=== PATIENT | female | born 1985 | race African-American/Black ===

== ENCOUNTER 2017-07-20 05:03 | Emergency (ER) | payer OTHER ==
--- NOTE | 2017-07-20 05:23 | PDOC ---
History of Present Illness - General Stated Complaint: COUGH, HEADACHE Time Seen by Provider: 07/20/17 05:17 History Source: Patient Exam Limitations: No Limitations - History of Present Illness Initial Comments: 07/20/17 05:22 32-year-old female with a history of asthma presents to the emergency department complaining of subjective fever, chills, body aches, sore throat, intermittent cough 4 days without headache, dizziness, lightheadedness, facial pain, rhinorrhea, nasal congestion, earaches, chest pain, shortness of breath, abdominal pains, flank pains, urinary symptoms. Past History - Past Medical History Allergies/Adverse Reactions: Allergies Allergy/AdvReac Type Severity Reaction Status Date / Time No Known Allergies Allergy Verified 11/05/15 12:03 Home Medications: Ambulatory Orders NK [No Known Home Medication] 11/05/15 Asthma: No Cancer: No Cardiac Disorders: No Diabetes: No HTN: No Seizures: No Thyroid Disease: No (denies) - Surgical History Abdominal Surgery: Yes (LAP BAND, gastric bypass) - Reproductive History (#): 4 Para: 1 Spontaneous : 2 - Immunization History Immunization Up to Date: Yes - Suicide/Smoking/Psychosocial Hx Smoking Status: No Smoking History: Never smoked Have you smoked in the past 12 months: No Number of Cigarettes Smoked Daily: 0 Hx Alcohol Use: No Drug/Substance Use Hx: No Substance Use Type: None Hx Substance Use Treatment: No Review of Systems - Review of Systems Able to Perform ROS?: Yes Comments:: 07/20/17 06:04 CONSTITUTIONAL: +subjective fever/chills Absent: diaphoresis, generalized weakness, malaise, loss of appetite HEENT: Absent: rhinorrhea, nasal congestion, throat pain, throat swelling, difficulty swallowing, mouth swelling, ear pain, eye pain, visual Changes CARDIOVASCULAR: Absent: chest pain, loss of consciousness, palpitations, irregular heart rate, peripheral edema RESPIRATORY: Absent: cough, shortness of breath, dyspnea with exertion, orthopnea, wheezing, stridor, hemoptysis GASTROINTESTINAL: Absent: abdominal pain, abdominal distension, nausea, vomiting, diarrhea, constipation, melena, hematochezia GENITOURINARY: Absent: dysuria, frequency, urgency, hesitancy, hematuria, flank pain, genital pain MUSCULOSKELETAL: Absent: myalgia, arthralgia, joint swelling SKIN: Absent: rash, itching, pallor HEMATOLOGIC/IMMUNOLOGIC: Absent: easy bleeding, easy bruising, lymphadenopathy, frequent infections ENDOCRINE: Absent: unexplained weight gain, unexplained weight loss, heat intolerance, cold intolerance NEUROLOGIC: Absent: headache, focal weakness or paresthesias, dizziness, unsteady gait, seizure, mental status changes, bladder or bowel incontinence PSYCHIATRIC: Absent: anxiety, depression, suicidal or homicidal ideation, hallucinations. Is the patient limited Lithuanian proficient: No *Physical Exam - Physical Exam Comments: 07/20/17 06:05 GENERAL: Well developed, well nourished. Awake and alert. No acute distress. HEENT: Normocephalic, atraumatic. PERRLA, EOMI. No conjunctival pallor. Sclera are non- icteric. Moist mucous membranes. Oropharynx is clear. NECK: Supple. Full ROM. No JVD. Carotid pulses 2+ and symmetric, without bruits. No thyromegaly. No lymphadenopathy. CARDIOVASCULAR: Regular rate and rhythm. No murmurs, rubs, or gallops. Distal pulses are 2+ and symmetric. PULMONARY: No evidence of respiratory distress. Lungs clear to auscultation bilaterally. No wheezing, rales or rhonchi. ABDOMINAL: Soft. Non-tender. Non-distended. No rebound or guarding. No organomegaly. Normoactive bowel sounds. MUSCULOSKELETAL Normal range of motion at all joints. No bony deformities or tenderness. No CVA tenderness. EXTREMITIES: No cyanosis. No clubbing. No edema. No calf tenderness. SKIN: Warm and dry. Normal capillary refill. No rashes. No jaundice. Medical Decision Making - Medical Decision Making 07/20/17 06:34 32-year-old female presents to the emergency department complaining of fever, general malaise, sore throat. Influenza swab came back positive for influenza A. Due to having these symptoms for 4 days, no treatment necessary except for supportive care. Increase fluids, Tylenol Motrin as needed for pain/fever, follow with PMD area patient agrees with plan. *DC/Admit/Observation/Transfer Diagnosis at time of Disposition: Influenza A (H1N1) - Discharge Dispostion Disposition: HOME Condition at time of disposition: Stable Admit: No - Referrals Referrals: Jayy Randhawa MD [Primary Care Provider] - - Patient Instructions Printed Discharge Instructions: DI for H1N1 Influenza -- Adult Additional Instructions: Increase fluids Tylenol alternating with Motrin every 6 hours as needed for pain or fever Follow-up with your physician within 48 hours Due to having these symptoms for the past 4 days, he would not be given Tamiflu. Supportive care/[id number] symptom relief medications suggested Return back to the emergency department for severe/persistent or worsening symptoms - Post Discharge Activity
[2017-07-20 05:42] VITALS: BP 137/89; PULSE 82; TEMP 99.1; BMI 43.8
== END 2017-07-20 06:42 | disposition home or self-care (01) ==
LOC: JER 05:03
DX: J10.1 Influenza due to other identified influenza virus with other respiratory manifestations (principal)
CPT/HCPCS: 87070; 87804; 99282-25

== ENCOUNTER 2017-09-23 06:56 | Emergency (ER) | payer OTHER ==
[2017-09-23 07:43] VITALS: BP 144/95; PULSE 83; TEMP 98.2; BMI 43.8
--- NOTE | 2017-09-23 07:52 | PDOC ---
History of Present Illness - General Chief Complaint: Pain, Acute Stated Complaint: ABD PAIN Time Seen by Provider: 09/23/17 07:41 History Source: Patient Exam Limitations: No Limitations - History of Present Illness Travel History: No Initial Comments: 09/23/17 08:04 Patient came to emergency department for evaluation of abdominal cramping. [facility] last menstrual period July 14 of this year, resulting in a that was documented at [facility]. Patient was ambivalent about retaining and was seen at [facility] yesterday to discuss . agreed to start the program and was given the first tablet of misoprostol- 200mg at [facility] yesterday afternoon at 2:30. Upon leaving the clinic patient decided she did not any longer wished to abort this . States woke up at 3:30 this morning with abdominal cramping. Denies fever, nausea vomiting, denies any vaginal bleeding or discharge. But states cramping is progressively worsening. Timing/Duration: reports: getting worse, intermittent Quality: reports: moderate, severe, aching, cramping Abdominal Pain Onset Location: reports: epigastric, generalized abdomen Pain Radiation: reports: no radiation Past History - Travel Traveled outside of the country in the last 30 days: No Close contact w/someone who was outside of country & ill: No - Past Medical History Allergies/Adverse Reactions: Allergies Allergy/AdvReac Type Severity Reaction Status Date / Time No Known Allergies Allergy Verified 09/23/17 07:36 Home Medications: Ambulatory Orders NK [No Known Home Medication] 11/05/15 Asthma: No Cancer: No Cardiac Disorders: No Diabetes: No HTN: No Seizures: No Thyroid Disease: No (denies) - Surgical History Abdominal Surgery: Yes (LAP BAND, gastric bypass) - Reproductive History (#): 4 Para: 1 Spontaneous : 2 - Immunization History Immunization Up to Date: Yes - Suicide/Smoking/Psychosocial Hx Smoking Status: No Smoking History: Never smoked Have you smoked in the past 12 months: No Number of Cigarettes Smoked Daily: 0 Hx Alcohol Use: No Drug/Substance Use Hx: No Substance Use Type: None Hx Substance Use Treatment: No Review of Systems - Review of Systems Able to Perform ROS?: Yes Is the patient limited Lao proficient: Yes Constitutional: Yes: Symptoms Reported, See HPI, Loss of Appetite, Malaise. No : Fever HEENTM: Yes: See HPI. No: Symptoms Reported Respiratory: Yes: See HPI. No: Symptoms reported, Cough ABD/GI: Yes: Symptoms Reported, See HPI, Abdominal cramping. No: Nausea, Vomiting : Yes: See HPI. No: Symptoms Reported, Burning, Dysuria, Discharge Musculoskeletal: No: Symptoms Reported All Other Systems: Reviewed and Negative *Physical Exam - Physical Exam General Appearance: Yes: Nourished, Appropriately Dressed HEENT: positive: SHALINI, Normal ENT Inspection Neck: positive: Supple. negative: Tender Respiratory/Chest: positive: Lungs Clear, Normal Breath Sounds Gastrointestinal/Abdominal: positive: Tender (generalized diffused), Soft, Tenderness (mild diffuse, no rebound or guarding, and primarily suprapubic). 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 Galvez who agrees there is no treatment and only watch and wait for positive results of Mifepristone versus retained . Patient will follow-up with [facility] and up week and understands consequents and what to watch for regards to abortive *DC/Admit/Observation/Transfer Diagnosis at time of Disposition: Abdominal pain during Qualifiers: Trimester: first trimester Qualified Code(s): O26.891 - Other specified related conditions, first trimester; R10.9 - Unspecified abdominal pain; R10.9 - Unspecified abdominal pain - Discharge Dispostion Disposition: HOME Condition at time of disposition: Stable Admit: No - Referrals Referrals: Jayy Randhawa MD [Primary Care Provider] - Checo Willis MD [Staff Physician] - - Patient Instructions Printed Discharge Instructions: DI for Threatened Additional Instructions: Rest, drink lots of fluids: Teas, water, soups Continue [id number] medications for symptomatic relief Tylenol for fever and pain Followup with private physician in one to 2 days as needed Return to emergency department for worsened symptoms, fevers, dehydration If the medication works, he will notice any increasing amount of bleeding and abdominal cramping with the completion of the . Follow-up with [facility] by the end of the week for further evaluation - Post Discharge Activity
[2017-09-23] MEDS ORDERED: ACETAMINOPHEN 500 MG TABLET (FP) PO ONE (08:02)
[2017-09-23] MEDS ORDERED: ACETAMINOPHEN 325 MG TABLET (FP) ONE (08:18)
[2017-09-23 09:18] LABS: URINE APPEARANCE CLOUDY; URINE BILIRUBIN NEGATIVE (NEGATIVE); URINE BLOOD NEGATIVE (NEGATIVE); URINE COLOR LTYELLOW; URINE GLUCOSE (UA) NEGATIVE (NEGATIVE); URINE KETONE TRACE (NEGATIVE); URINE LEUK ESTERASE TRACE (NEGATIVE); URINE NITRITE NEGATIVE (NEGATIVE); URINE PROTEIN NEGATIVE (NEGATIVE); URINE UROBILINOGEN NEGATIVE mg/dL (0.2-1.0)
[2017-09-23 09:21] LABS: EPI CELLS MANY /HPF (FEW); URINE MUCUS RARE
== END 2017-09-23 10:02 | disposition home or self-care (01) ==
LOC: JER 06:56
DX: O26.891 Other specified pregnancy related conditions, first trimester (principal); R10.84 Generalized abdominal pain; Z3A.01 Less than 8 weeks gestation of pregnancy
CPT/HCPCS: 81003; 81015; 99282-25

== ENCOUNTER 2017-09-24 00:26 | Emergency (ER) | payer OTHER ==
[2017-09-24 00:43] VITALS: BP 128/81; PULSE 135; TEMP 98.3; BMI 43.8
--- NOTE | 2017-09-24 00:55 | PDOC ---
History of Present Illness - General History Source: Patient Exam Limitations: No Limitations - History of Present Illness Initial Comments: 09/24/17 01:10 The patient is a 32 year old female who is reportedly 2 months ( LMP: 07/14/2017) with a significant PMH of who presents to the emergency department with vaginal bleeding beginning approximately 8 hours ago. The patient was evaluated here in the ED yesterday evening for abdominal cramping. The patient reports that she agreed to start a Misoprostol course at [facility] 2 days ago to terminate her , but upon taking the first 200mg Misoprostol pill notes she no longer wanted to abort. She presents this morning after she reports she continues to bleed heavily. The patient denies chest pain, shortness of breath, headache and dizziness. Denies fever, chills, nausea, vomit, diarrhea and constipation. Denies dysuria, frequency, urgency and hematuria. Allergies: NKA Past surgical history: Lap band, gastric bypass. Social history: No reported cigarette, alcohol, or drug use. PCP: None reported. <Tyrell Harrison - Last Filed: 09/24/17 01:10> - General History Source: Patient <MarvinSin covarrubias - Last Filed: 09/24/17 03:39> - General Chief Complaint: Vaginal Bleeding Stated Complaint: VAGINAL BLEEDING,PAIN Time Seen by Provider: 09/24/17 00:50 Past History <Tyrell Harrison - Last Filed: 09/24/17 01:10> - Past Medical History Asthma: No Cancer: No Cardiac Disorders: No COPD: No Diabetes: No HTN: No Seizures: No Thyroid Disease: No (denies) - Surgical History Abdominal Surgery: Yes (LAP BAND, gastric bypass) - Reproductive History (#): 5 Para: 3 Therapeutic (s) & number: Yes Spontaneous : 2 - Immunization History Immunization Up to Date: Yes - Suicide/Smoking/Psychosocial Hx Smoking Status: No Smoking History: Never smoked Have you smoked in the past 12 months: No Number of Cigarettes Smoked Daily: 0 Information on smoking cessation initiated: No 'Breaking Loose' booklet given: 09/23/17 Hx Alcohol Use: No Drug/Substance Use Hx: No Substance Use Type: None Hx Substance Use Treatment: No <Sin Cooley - Last Filed: 09/24/17 03:39> - Past Medical History Allergies/Adverse Reactions: Allergies Allergy/AdvReac Type Severity Reaction Status Date / Time No Known Allergies Allergy Verified 09/24/17 00:40 Home Medications: Ambulatory Orders Oxycodone HCl/Acetaminophen [Percocet 5-325 mg Tablet] 1 - 2 tab PO Q6H #20 tablet MDD 4 09/24/17 Review of Systems - Review of Systems Able to Perform ROS?: Yes Comments:: 09/24/17 01:10 CONSTITUTIONAL: Absent: fever, chills, diaphoresis, generalized weakness, malaise, loss of appetite HEENT: Absent: rhinorrhea, nasal congestion, throat pain, throat swelling, difficulty swallowing, mouth swelling, ear pain, eye pain, visual Changes CARDIOVASCULAR: Absent: chest pain, syncope, palpitations, irregular heart rate, lightheadedness , peripheral edema RESPIRATORY: Absent: cough, shortness of breath, dyspnea with exertion, orthopnea, wheezing, stridor, hemoptysis GASTROINTESTINAL: Absent: abdominal pain, abdominal distension, nausea, vomiting, diarrhea, constipation, melena, hematochezia GENITOURINARY: (+) Vaginal bleeding. Absent: dysuria, frequency, urgency, hesitancy, hematuria, flank pain, genital pain MUSCULOSKELETAL: Absent: myalgia, arthralgia, joint swelling SKIN: Absent: rash, itching, pallor HEMATOLOGIC/IMMUNOLOGIC: Absent: easy bleeding, easy bruising, lymphadenopathy, frequent infections ENDOCRINE: Absent: unexplained weight gain, unexplained weight loss, heat intolerance, cold intolerance NEUROLOGIC: Absent: headache, focal weakness or paresthesias, dizziness, unsteady gait, seizure, mental status changes, bladder or bowel incontinence PSYCHIATRIC: Absent: anxiety, depression, suicidal or homicidal ideation, hallucinations. <Tyrell Harrison - Last Filed: 09/24/17 01:10> *Physical Exam - Vital Signs Last Vital Signs Temp Pulse Resp BP Pulse Ox 98.3 F 135 H 14 128/81 100 09/24/17 00:40 09/24/17 00:40 09/24/17 00:40 09/24/17 00:40 09/24/17 00:40 - Physical Exam Comments: 09/24/17 01:10 GENERAL: Well developed, well nourished. Awake and alert. No acute distress. HEENT: Normocephalic, atraumatic. PERRLA, EOMI. No conjunctival pallor. Sclera are non- icteric. Moist mucous membranes. Oropharynx is clear. NECK: Supple. Full ROM. No JVD. Carotid pulses 2+ and symmetric, without bruits. No thyromegaly. No lymphadenopathy. CARDIOVASCULAR: Regular rate and rhythm. No murmurs, rubs, or gallops. Distal pulses are 2+ and symmetric. PULMONARY: No evidence of respiratory distress. Lungs clear to auscultation bilaterally. No wheezing, rales or rhonchi. ABDOMINAL: Soft. Non-tender. Non-distended. No rebound or guarding. No organomegaly. Normoactive bowel sounds. PELVIC: Deferred to pelvic US. MUSCULOSKELETAL Normal range of motion at all joints. No bony deformities or tenderness. No CVA tenderness. EXTREMITIES: No cyanosis. No clubbing. No edema. No calf tenderness. SKIN: Warm and dry. Normal capillary refill. No rashes. No jaundice. NEUROLOGICAL: Alert, awake, appropriate. Cranial nerves 2-12 intact. No deficits to light touch and temperature in face, upper extremities and lower extremities. No motor deficits in the in face, upper extremities and lower extremities. Normoreflexic in the upper and lower extremities. Normal speech. Toes are downgoing bilaterally. Gait is normal without ataxia. PSYCHIATRIC: Cooperative. Good eye contact. Appropriate mood and affect. <Tyrell Harrison - Last Filed: 09/24/17 01:10> - Vital Signs Last Vital Signs Temp Pulse Resp BP Pulse Ox 98.3 F 135 H 14 128/81 100 09/24/17 00:40 09/24/17 00:40 09/24/17 00:40 09/24/17 00:40 09/24/17 00:40 <Sin Cooley - Last Filed: 09/24/17 03:39> ED Treatment Course - LABORATORY CBC & Chemistry Diagram: 09/24/17 01:09 09/24/17 01:09 <Sin Cooley - Last Filed: 09/24/17 03:39> Medical Decision Making - Medical Decision Making 09/24/17 02:51 Dr. Cooley: The scribe's documentation has been prepared under my direction and personally reviewed by me in its entirery. I confirm that the note above accurately reflects all work, treatment, procedures, and medical decision making performed by me. 09/24/17 03:37 Pt heart still high secondary to pain. Pt denies any cp or sob. Pt will be given Toradol 60mg IM and discharged. Pt advised to follow up with OB// [facility] in two days for repeat US. <Sin Cooley - Last Filed: 09/24/17 03:39> *DC/Admit/Observation/Transfer - Attestations Scribe Attestion: 09/24/17 01:10 Documentation prepared by Tyrell Harrison, acting as rn medical inpatient services for Sin Cooley DO. <Tyrell Harrison - Last Filed: 09/24/17 01:10> - Discharge Dispostion Admit: No <Sin Cooley - Last Filed: 09/24/17 03:39> Diagnosis at time of Disposition: Inevitable - Discharge Dispostion Disposition: HOME Condition at time of disposition: Stable - Prescriptions Prescriptions: Oxycodone HCl/Acetaminophen [Percocet 5-325 mg Tablet] 1 - 2 tab PO Q6H #20 tablet MDD 4 - Referrals Referrals: Jayy Randhawa MD [Primary Care Provider] - - Patient Instructions Printed Discharge Instructions: DI for Miscarriage Additional Instructions: Please follow up with fitter/welder in two to three days to follow up to have ultrasound to be repeated. Return if any probems
[2017-09-24 01:16] LABS: BASO % 1.5 % (0-2.0); EOS % 0.5 % (0-4.5); HEMATOCRIT 34.6 % (32.4-45.2); HEMOGLOBIN 11.7 GM/dL (10.7-15.3); LYMPH % 32.4 % (8-40); MCH 25.9 pg (25.7-33.7); MCHC 33.8 g/dl (32.0-36.0); MEAN CELL VOLUME 76.6 fl (80-96); MEAN PLT VOLUME 6.8 fl (7.5-11.1); NEUT % 57.6 % (42.8-82.8); PLATELET COUNT 417 K/MM3 (134-434); RBC 4.51 M/mm3 (3.60-5.2); RDW 17.7 % (11.6-15.6); WHITE BLOOD COUNT 6.4 K/mm3 (4.0-10.0)
[2017-09-24 01:32] LABS: INR 0.98 (0.82-1.09); PROTHROMBIN TIME (PATIENT) 11.1 SEC (9.98-11.88)
[2017-09-24 01:42] LABS: ALBUMIN 3.6 g/dl (3.4-5.0); ANION GAP 12 (8-16); BILIRUBIN,TOTAL 0.3 mg/dL (0.2-1.0); BLOOD UREA NITROGEN 5 mg/dL (7-18); CALCIUM 9.2 mg/dL (8.5-10.1); CHLORIDE 102 mmol/L (98-107); CO2 21 mmol/L (21-32); CREATININE 0.9 mg/dL (0.55-1.02); GLUCOSE,RANDOM 92 mg/dL (74-106); POTASSIUM 3.8 mmol/L (3.5-5.1); SGOT/AST 16 U/L (15-37); SGPT/ALT 13 U/L (12-78); SODIUM 135 mmol/L (136-145); TOT PROT 7.8 g/dl (6.4-8.2)
[2017-09-24 01:57] LABS: ALK PHOS 89 U/L (45-117)
[2017-09-24 02:36] LABS: URINE APPEARANCE CLOUDY; URINE BILIRUBIN NEGATIVE (NEGATIVE); URINE BLOOD 3+ (NEGATIVE); URINE COLOR AMBER; URINE GLUCOSE (UA) NEGATIVE (NEGATIVE); URINE KETONE 1+ (NEGATIVE); URINE LEUK ESTERASE NEGATIVE (NEGATIVE); URINE NITRITE NEGATIVE (NEGATIVE)
[2017-09-24 02:38] LABS: URINE PROTEIN 2+ (NEGATIVE)
[2017-09-24 02:45] LABS: URINE HYALINE CAST 10 /lpf; URINE MUCUS MANY
[2017-09-24] MEDS ORDERED: KETOROLAC TROMETHAMINE 60 MG/2 ML VIAL IM ONE (03:36)
[2017-09-24] MEDS ORDERED: KETOROLAC TROMETHAMINE 60 MG/2 ML VIAL ONE (03:38)
== END 2017-09-24 02:59 | disposition home or self-care (01) ==
LOC: JER 00:26
DX: O26.891 Other specified pregnancy related conditions, first trimester (principal); O20.0 Threatened abortion; Z3A.01 Less than 8 weeks gestation of pregnancy
CPT/HCPCS: 36415; 76817-TC; 80053; 81003; 81015; 84702; 85025; 85610; 86850; 86900; 86901; 99284-25

== ENCOUNTER 2017-09-25 20:53 | Emergency (ER) | payer OTHER ==
[2017-09-25] MEDS ORDERED: DIPHTH,PERTUSS(ACELL),TET 0.5 ML DISP.SYRIN IM ONE (21:06)
--- NOTE | 2017-09-25 21:06 | PDOC ---
Rapid Medical Evaluation Time Seen by Provider: 09/25/17 21:04 Medical Evaluation: Allergies Allergy/AdvReac Type Severity Reaction Status Date / Time No Known Allergies Allergy Verified 09/24/17 00:40 09/25/17 21:04 32 year old female with right thumb laceration from a glass. Does not recall last tetanus. Superficial laceration, no active bleeding. -Boostrix -To FT for further evaluation Discharge Disposition - Referrals Referrals: Jayy Randhawa MD [Primary Care Provider] - - Patient Instructions - Post Discharge Activity
[2017-09-25 21:10] VITALS: BP 142/104; PULSE 96; TEMP 97.7; BMI 42.3
--- NOTE | 2017-09-25 22:36 | PDOC ---
History of Present Illness - General Chief Complaint: Laceration Stated Complaint: LACERATION Time Seen by Provider: 09/25/17 21:04 History Source: Patient Exam Limitations: No Limitations - History of Present Illness Initial Comments: 09/25/17 22:31 Was reaching for a heavy glass vase when slipped broke and incised the maximal dorsal aspect of right thumb in a V-shaped flap laceration. Patient has full range of motion of thumb, no profuse bleeding and no foreign body. Occurred: reports: just prior to arrival, this evening Severity: reports: mild Past History - Travel Traveled outside of the country in the last 30 days: No Close contact w/someone who was outside of country & ill: No - Past Medical History Allergies/Adverse Reactions: Allergies Allergy/AdvReac Type Severity Reaction Status Date / Time No Known Allergies Allergy Verified 09/25/17 21:07 Home Medications: Ambulatory Orders Oxycodone HCl/Acetaminophen [Percocet 5-325 mg Tablet] 1 - 2 tab PO Q6H #20 tablet MDD 4 09/24/17 Anemia: No Asthma: No Cancer: No Cardiac Disorders: No CVA: No COPD: No DVT: No Dementia: No Diabetes: No Dialysis: No GI Disorders: No Disorders: No HTN: No Hypercholesterolemia: No Kidney Stones: No Liver Disease: No Psychiatric Problems: No Seizures: No Thyroid Disease: (denies) Lung CA: No - Surgical History Abdominal Surgery: Yes (LAP BAND, gastric bypass) - Reproductive History (#): 5 Para: 3 Therapeutic (s) & number: Yes Spontaneous : 2 - Immunization History Immunization Up to Date: Yes - Suicide/Smoking/Psychosocial Hx Smoking Status: No Smoking History: Never smoked Have you smoked in the past 12 months: No Number of Cigarettes Smoked Daily: 0 Information on smoking cessation initiated: No 'Breaking Loose' booklet given: 09/23/17 Hx Alcohol Use: No Drug/Substance Use Hx: No Substance Use Type: None Hx Substance Use Treatment: No Review of Systems - Review of Systems Able to Perform ROS?: Yes Is the patient limited Sinhala proficient: Yes Constitutional: Yes: See HPI. No: Symptoms Reported, Malaise HEENTM: No: Symptoms Reported Musculoskeletal: Yes: Symptoms Reported, See HPI, Joint Pain Integumentary: Yes: Symptoms Reported, See HPI, Other (flap lac to thumb right ) Neurological: No: Symptoms reported All Other Systems: Reviewed and Negative *Physical Exam - Vital Signs Last Vital Signs Temp Pulse Resp BP Pulse Ox 97.7 F 96 H 18 142/104 99 09/25/17 21:08 09/25/17 21:08 09/25/17 21:08 09/25/17 21:08 09/25/17 21:08 - Physical Exam General Appearance: Yes: Nourished, Appropriately Dressed, Apparent Distress, Mild Distress HEENT: positive: SHALINI, Normal ENT Inspection Neck: negative: Tender Extremity: positive: Normal Capillary Refill, Normal Inspection, Normal Range of Motion, Other (with 3 cm flap laceration from PIP extending to MCP of right thumb. Has full range of motion somewhat with strong flexion and extension against resistance. No foreign bodies noted and sensation intact distal to injury.) Integumentary: positive: Normal Color Neurologic: positive: education director II-XII NML intact, Fully Oriented, Alert, Normal Mood/ Affect, Normal Response, Motor Strength 5/5 Procedures - Laceration/Wound Repair Right Anterior Dorsal Finger Wound Length: to 2.5 cm Wound Explored: clean Wound's Depth, Shape: superficial, flap Irrigated w/ Saline: Yes Betadine Prep: Yes Anesthesia: 1% Lidocaine Wound Repaired With: Sutures Suture Size/Type: 5:0 Number of Sutures: 5 Layer Closure: No Splint Applied: Yes ED Treatment Course - Medications Given in the ED: ED Medications Discontinued Medications Generic Name Dose Route Start Last Admin Trade Name Freq PRN Reason Stop Dose Admin Diphtheria/Tetanus/Acell Pertussis 0.5 ml 09/25/17 21:06 09/25/17 22:03 Boostrix - IM 09/25/17 21:07 0.5 ml .ONCE ONE Administration *DC/Admit/Observation/Transfer Diagnosis at time of Disposition: Laceration of finger Qualifiers: Encounter type: initial encounter Finger: thumb Damage to nail status: without damage Foreign body presence: without foreign body Laterality: right Qualified Code(s): S61.011A - Laceration without foreign body of right thumb without damage to nail, initial encounter - Discharge Dispostion Disposition: HOME Condition at time of disposition: Stable Admit: No - Referrals Referrals: Jayy Randhawa MD [Primary Care Provider] - - Patient Instructions Printed Discharge Instructions: DI for Laceration Repair Additional Instructions: Rest, elevate, avoid strenuous activity or heavy lifting until sutures are removed Leave dressing on for the next 24 hours, Then may remove dressing gently and wash area with soap and water. Reapply bacitracin ointment and dressing daily for the next 5 days On day #6 keep the wound protected and cover as needed until sutures are removed allowing wound to start to dry May use Tylenol or Motrin for pain relief Suture removal in : 10 -14 Days - Post Discharge Activity Forms/Work/School Notes: Back to Work
== END 2017-09-25 22:44 | disposition home or self-care (01) ==
LOC: JERFT 20:53
PROC: 0HQFXZZ Repair Right Hand Skin, External Approach (ICD-10-PCS; principal; 2017-09-25)
PROC: 3E0234Z Introduction of Serum, Toxoid and Vaccine into Muscle, Percutaneous Approach (ICD-10-PCS; 2017-09-25)
DX: S61.011A Laceration without foreign body of right thumb without damage to nail, initial encounter (principal); W25.XXXA Contact with sharp glass, initial encounter; Y93.89 Activity, other specified; Y92.89 Other specified places as the place of occurrence of the external cause
CPT/HCPCS: 90715; 99281-25

== ENCOUNTER 2018-07-18 17:25 | Inpatient (IN) | payer OTHER ==
[2018-07-18] MEDS ORDERED: ONDANSETRON 4 MG/2 ML VIAL IVPB ONE (18:15)
[2018-07-18] MEDS ORDERED: LACTATED RINGERS SOLUTION 500 ML IV ONE ×2 (18:30→19:30)
[2018-07-18] MEDS ORDERED: TERBUTALINE SULFATE 1 MG/1 ML VIAL SQ ONE ×3 (19:34→21:00)
[2018-07-18] MEDS ORDERED: BETAMET ACET/BETAMET NA PH 30 MG/5 ML VIAL ONE (19:34)
[2018-07-18] MEDS ORDERED: BETAMET ACET/BETAMET NA PH 30 MG/5 ML VIAL IM ONE (20:00)
[2018-07-18 21:02] LABS: BASO % 1.2 % (0-2.0); HEMATOCRIT 27.3 % (32.4-45.2); LYMPH % 29.7 % (8-40); MCH 22.7 pg (25.7-33.7); MCHC 33.1 g/dl (32.0-36.0); MEAN CELL VOLUME 68.6 fl (80-96); MEAN PLT VOLUME 6.8 fl (7.5-11.1); MONO % 5.8 % (3.8-10.2); NEUT % 63.3 % (42.8-82.8); PLATELET COUNT 431 K/MM3 (134-434); RBC 3.98 M/mm3 (3.60-5.2); RDW 17.3 % (11.6-15.6); WHITE BLOOD COUNT 9.6 K/mm3 (4.0-10.0)
[2018-07-18 21:12] LABS: INR 1.1 (0.83-1.09)
[2018-07-18 21:15] LABS: ACTIVATED PTT 26.6 SECONDS (25.2-36.5)
[2018-07-18 21:56] LABS: ALBUMIN 3.1 g/dl (3.4-5.0); ALK PHOS 131 U/L (45-117); ANION GAP 11 MMOL/L (8-16); BILIRUBIN,TOTAL 0.6 mg/dL (0.2-1); BLOOD UREA NITROGEN 11 mg/dL (7-18); CHLORIDE 107 mmol/L (98-107); CO2 19 mmol/L (21-32); CREATININE 1.1 mg/dL (0.55-1.3); GLUCOSE,RANDOM 74 mg/dL (74-106); POTASSIUM 3.7 mmol/L (3.5-5.1); SGOT/AST 47 U/L (15-37); SGPT/ALT 23 U/L (13-61); SODIUM 138 mmol/L (136-145); TOT PROT 7.4 g/dl (6.4-8.2)
[2018-07-18 22:02] LABS: URINE APPEARANCE SLCLOUDY; URINE BILIRUBIN NEGATIVE (<2.0 mg/dL); URINE COLOR AMBER; URINE GLUCOSE (UA) NEGATIVE (NEGATIVE); URINE KETONE 1+ (NEGATIVE); URINE LEUK ESTERASE NEGATIVE (NEGATIVE); URINE NITRITE NEGATIVE (NEGATIVE); URINE PROTEIN 2+ (NEGATIVE)
[2018-07-18 22:15] LABS: EPI CELLS FEW /HPF (FEW); URINE BACTERIA RARE /hpf (NONE SEEN); URINE HYALINE CAST 3 /lpf; URINE MUCUS MANY
[2018-07-18 22:26] LABS: COCAINE, UR NEGATIVE ng/ml (CUTOFF=300); METHADONE, UR NEGATIVE ng/ml (CUTOFF=300); PHENCYCLIDINE,URINE NEGATIVE ng/ml (CUTOFF=25); URINE AMPHETAMINES NEGATIVE ng/ml (CUTOFF=500); URINE BARBITURATES NEGATIVE ng/ml (CUTOFF=200); URINE BENZODIAZEPINES NEGATIVE ng/ml (CUTOFF=200)
[2018-07-18 22:27] LABS: OPIATES, URI NEGATIVE ng/ml (CUTOFF=300)
--- NOTE | 2018-07-18 23:36 | RAPID ---
Physical Examination Vital Signs: Vital Signs Temperature 98.9 F 07/18/18 18:12 Pulse Rate 90 07/18/18 20:50 Respiratory Rate Blood Pressure O2 Sat by Pulse Oximetry (%) Labs: CBC, BMP 07/18/18 20:19 07/18/18 20:19 Rapid Response - Rapid Response Assessment: Rapid response was called to Labor and Delivery for patient complaint of sudden onset chest pain associated with shortness of breath. Patient endorses diagnosis of anxiety. Takes trazodone at home as needed, did not take dose today. Patient is at 32 weeks gestation. Presented to hospital with abdominal pain Vital signs: 186/156 HR 100 RR 25 O2 saturation 100% on 10L face mask Exam: GENERAL: Patient is awake, alert, oriented in acute distress. Appears anxious HEENT: PERRLA, EOMI, supple without lymphadenopathy, moist mucous membranes CARDIAC: Tachycardic. +S1, S2 no murmurs, rubs, gallops. Chest pain partially reproduced with palpation PULMONARY: Tachypnic. Clear to auscultation B/L Repeat vital signs: 146/52 HR 66 RR 20 O2 saturation 100% on 10L face mask Plan STAT EKG- does not show ischemic changes. No prior studies for comparison. Likely secondary to anxiety. Patient acknowledges increasing anxiety throughout the day. Patient reassured at bedside. Chest pain spontaneously resolved. Reproducible with palpation. Maalox 30mL PO X1 Rest of management per OBGYN. Patient seen with OBGYN attending Dr. Rinaldi Patient seen with Hospitalist attending physician.
[2018-07-18] MEDS ORDERED: MAG HYDROX/AL HYDROX/SIMETH 30 ML UNIT-DOSE CUP PO ONE (23:45)
--- NOTE | 2018-07-19 00:20 | HP ---
Past Medical History - Admission Chief Complaint: N/V/D History of Present Illness: 33yo @ 31.2wks who presents with one day of N/V/D, decreased movement. Also notes suprapubic pain and pressure as well. No VB. No LOF. No BERNSTEIN, no vision changes. No edema Has been non-complaint with PNC in this of her own will, did not want to do with labs, particularly glucola. 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 History Source: Patient - Past Medical History Cardiovascular: Yes: Other ...: 6 ...Para: 3 ...Term: 3 ...: 0 ...Spon : 0 ...Induced : 2 ... Weeks Gestation by Dates: ...EDC by Sono: 09/17/18 Infectious Disease: Yes: Other (+HSV 1). No: AIDS, HIV Psych: Yes: Anxiety, Bipolar, Depression, Other (history of drug abuse) - Past Surgical History Past Surgical History: Yes: Bariatric Surgery Hx Myomectomy: No Hx Transabdominal Cerclage: No - Advance Directives Advance Directives: Yes: Living Will - Smoking History Smoking history: Never smoked Have you smoked in the past 12 months: No Aproximately how many cigarettes per day: 0 - Alcohol/Substance Use Hx Alcohol Use: No History of Substance Use: reports: None - Social History Usual Living Arrangement: Yes: Alone ADL: Independent History of Recent Travel: No Home Medications - Allergies Allergies/Adverse Reactions: Allergies Allergy/AdvReac Type Severity Reaction Status Date / Time meperidine [From Demerol] Allergy Intermediate Hives Verified 07/18/18 17:59 - Home Medications Home Medications: Ambulatory Orders Pnv No.95/Ferrous Fum/Folic AC [ Vitamin Tablet] 1 each PO DAILY Physical Exam - Maternity Vital Signs: Vital Signs Temperature 98.9 F 07/18/18 18:12 Pulse Rate 90 07/18/18 20:50 Respiratory Rate Blood Pressure O2 Sat by Pulse Oximetry (%) Constitutional: Yes: Well Nourished, No Distress, Calm - Abdominal Exam/OB Number of Fetuses: Single Presentation: Vertex Contractions: Yes Regularity: Irregular Intensity: Mild/Mod Accelerations: Non-Uniform Decelerations: Variable - Vaginal Exam/OB Vaginal Bleediing: No Speculum Exam: No Dilatation (cm): 0 Effacement (%): 0 Amniotic Membrane Status: Intact Presentation: Vertex/Position Station: -3 - Physical Exam Edema: No - Labs Lab Results: CBC, BMP 07/18/18 20:19 07/18/18 20:19 Imaging - Results Chest X-ray: Pending, Report Reviewed Ultrasound: Report Reviewed (BPP 02/18) Assessment/Plan 33yo @ 31.2wks here with N/V/D, subsequent HTN- concern for PEC with severe features. NST initially with variable decelerations that did not improve with IV hydration , BPP done 02/18. With continued hydration upon return from radiology, gradual improvement. Last hour with improved variability and resolution of variable decelerations. After return from sonogram, had painful contractions q 2-3 mins- given two doses of terb with resolution of ctx and continued hydration. Given one dose of BMZ at 19:40, will need repeat dose in 24hrs Rapid response team called as patient subsequently delivered SOB- vitals stable. EKG wnl. Pt reports this happened after a distressing call with her . BPs elevated mostly 140's but one SBP 160's. Last 155/85. Labs ordered, showing 2+ protein in urine. Cr 1.1. AST mildly elevated. Plts wnl- 431. In light of the elevated Cr, concern for PEC with severe features. Urine toxicology negative Pt relayed psychiatric history, taking Trazadone prn for sleep. Untreated for her depression- likely will need psych consult at some point Will start Magnesium for seizure PPX In light of her blood pressures, abnormal labs, and early gestation, I recommended transfer to [facility] for further evaluation/management. Case discussed with [facility] senior compensation analyst physician, whom accepted the transfer. I discussed the likely diagnosis of PEC with the patient and need for care at a hospital with level III NICU in case she requires imminent delivery as her early GA. We also discussed the potential for seizure/stroke risk with elevated pressures. Magnesium started after discussion with accepting MD. T RGA prior to transfer. Lolis Robins MD
[2018-07-19] MEDS ORDERED: MAGNESIUM SULFATE IN WATER 4 GM/50 ML IVPB IVPB ONE (00:49)
[2018-07-19] MEDS ORDERED: MAGNESIUM SULFATE 20GM/500ML - 20 GM/500 ML INFUS.BAG ONE (00:50)
[2018-07-19] MEDS ORDERED: MAGNESIUM SULF 50% (8.12 MEQ/2 ML-1 GM VIAL) IVPB ONE (01:32)
[2018-07-19] MEDS ORDERED: DEXTROSE 5%-LACTATED RINGERS 1,000 ML IV SCH (01:45)
[2018-07-19] MEDS ORDERED: MAGNESIUM SULFATE 20GM/500ML - 20 GM/500 ML INFUS.BAG IV SCH (01:45)
[2018-07-19 02:21] VITALS: BP 165/94; PULSE 76; TEMP 98.5; BMI 44.0
--- NOTE | 2018-07-19 16:43 | EKG ---
Test Reason : Blood Pressure : / mmHG Vent. Rate : 094 BPM Atrial Rate : 094 BPM P-R Int : 112 ms QRS Dur : 092 ms QT Int : 372 ms P-R-T Axes : 063 037 019 degrees QTc Int : 465 ms POOR DATA QUALITY, INTERPRETATION MAY BE ADVERSELY AFFECTED NORMAL SINUS RHYTHM MOTION ARTIFACT OTHERWISE NORMAL ECG Confirmed by MD ASHLEY, ENRIQUETA ([id number]) on 07/19/2018 4:43:19 PM Referred By: Confirmed By:ENRIQUETA RAMIREZ MD
[2018-07-20 12:15] LABS: HBsAG SCREEN Negative (Negative)
[2018-07-20 15:17] LABS: RUBELLA IgG ANTIBODY 1.13 index (Immune >0.99)
== END 2018-07-19 01:35 | disposition short-term general hospital (02) | DRG 566 ==
LOC: JDEL 17:25 → JLDR 23:30
PROVIDERS: ADMIT Obstetrics & Gynecology; ATTEND Obstetrics & Gynecology
DX: O14.93 Unspecified pre-eclampsia, third trimester (principal); Z3A.31 31 weeks gestation of pregnancy; O99.343 Other mental disorders complicating pregnancy, third trimester; F32.9 Major depressive disorder, single episode, unspecified
CPT/HCPCS: 36415; 76817-TC; 76819-TC; 80053; 80307; 81003; 81015; 85025; 85610; 85730; 86593; 86762; 86850; 86900; 86901; 87340; 87389; 93005; 93010; 96372

== ENCOUNTER 2018-08-17 13:35 | Emergency (ER) | payer OTHER | END 2018-08-17 14:30 | disposition left against medical advice (07) | LOC: JER 13:35 ==

== ENCOUNTER 2020-07-18 11:29 | Emergency (ER) | payer OTHER ==
[2020-07-18 11:56] VITALS: BP 128/83; PULSE 110; TEMP 96.4; BMI 44.8
[2020-07-18] MEDS ORDERED: ONDANSETRON 4 MG/2 ML VIAL IVPUSH ONE (11:58)
[2020-07-18] MEDS ORDERED: SODIUM CHLORIDE 1,000 ML IV STA (11:58)
[2020-07-18 13:58] LABS: BASO % 1.1 % (0-2.0); EOS % 0.3 % (0-4.5); HEMATOCRIT 38.6 % (32.4-45.2); LYMPH % 24.5 % (8-40); MCH 29.3 pg (25.7-33.7); MCHC 33.6 g/dl (32.0-36.0); MEAN CELL VOLUME 87.1 fl (80-96); MONO % 8.1 % (3.8-10.2); PLATELET COUNT 373 K/MM3 (134-434); RBC 4.43 M/mm3 (3.60-5.2); RDW 17.7 % (11.6-15.6); WHITE BLOOD COUNT 7.2 K/mm3 (4.0-10.0)
[2020-07-18 14:21] LABS: CALCIUM 8.5 mg/dL (8.5-10.1)
[2020-07-18 14:22] LABS: ALBUMIN 3.6 g/dl (3.4-5.0); BLOOD UREA NITROGEN 9.8 mg/dL (7-18)
[2020-07-18 14:25] LABS: CREATININE 0.9 mg/dL (0.55-1.3)
[2020-07-18 14:26] LABS: BILIRUBIN,TOTAL 0.5 mg/dL (0.2-1); TOT PROT 8.1 g/dl (6.4-8.2)
[2020-07-18 17:06] LABS: URINE APPEARANCE TURBID; URINE BILIRUBIN NEGATIVE (NEGATIVE); URINE COLOR ORANGE; URINE GLUCOSE (UA) NEGATIVE (NEGATIVE); URINE KETONE TRACE (NEGATIVE); URINE LEUK ESTERASE NEGATIVE (NEGATIVE); URINE NITRITE NEGATIVE (NEGATIVE); URINE PROTEIN TRACE (NEGATIVE); URINE UROBILINOGEN 0.2 mg/dL (0.2-1.0)
== END 2020-07-18 17:35 | disposition home or self-care (01) ==
LOC: JER 11:29
PROC: 3E033GC Introduction of Other Therapeutic Substance into Peripheral Vein, Percutaneous Approach (ICD-10-PCS; principal; 2020-07-18)
PROC: 3E0337Z Introduction of Electrolytic and Water Balance Substance into Peripheral Vein, Percutaneous Approach (ICD-10-PCS; 2020-07-18)
DX: O21.9 Vomiting of pregnancy, unspecified (principal); Z3A.01 Less than 8 weeks gestation of pregnancy
CPT/HCPCS: 36415; 71046-TC-FY; 80053; 81003; 83690; 84702; 85025; 87077; 87086; 99284-25; C9803; U0003

== ENCOUNTER 2021-03-02 05:50 | Inpatient (IN) | payer OTHER ==
[2021-03-02] MEDS ORDERED: AMPICILLIN - 2 GM in SODIUM CHLORIDE 100 ML IVPB ONE (06:36)
[2021-03-02] MEDS ORDERED: AMPICILLIN SODIUM 2 GM VIAL ONE (06:37)
[2021-03-02] MEDS: DEXTROSE 5%-LACTATED RINGERS 1,000 ML IV SCH (06:40)
[2021-03-02] MEDS ORDERED: OXYTOCIN 20 UNITS in 0.9% NS 20 UNIT/1,000 ML INFUS.BAG IV ONE ×2 (06:56→08:49)
[2021-03-02 07:05] VITALS: BMI 48.5
[2021-03-02 07:45] LABS: BASO % 1.3 % (0-2.0); EOS % 0.6 % (0-4.5); HEMATOCRIT 34.6 % (32.4-45.2); LYMPH % 35.8 % (8-40); MCH 28.1 pg (25.7-33.7); MCHC 34.7 g/dl (32.0-36.0); MEAN PLT VOLUME 7.5 fl (7.5-11.1); MONO % 7.6 % (3.8-10.2); NEUT % 54.7 % (42.8-82.8); PLATELET COUNT 332 10^3/uL (134-434); RBC 4.27 M/mm3 (3.60-5.2); RDW 15.7 % (11.6-15.6); WHITE BLOOD COUNT 7.7 K/mm3 (4.0-10.0)
[2021-03-02 07:55] LABS: CORD BASE EXCESS 0.3 mmol/L (0-2); CORD PCO2 40.8 mmHg (30-78); CORD pH 7.406 (7.14-7.44)
[2021-03-02 07:55] LABS: INR 0.96 (0.83-1.09); PROTHROMBIN TIME (PATIENT) 11.8 SEC (9.7-13.0)
[2021-03-02 07:57] LABS: ACTIVATED PTT 26.2 SECONDS (25.2-36.5)
[2021-03-02 07:57] LABS: CORD HCO3 24.1 mmHg (20-29); CORD PCO2 45.5 mmHg (30-78); CORD pH 7.341 (7.14-7.44)
[2021-03-02] MEDS ORDERED: WITCH HAZEL 50% (TUCKS) 40 PAD/JAR PAD TP PRN (07:58)
[2021-03-02] MEDS ORDERED: METHYLERGONOVINE MALEATE 0.2 MG/1 ML AMP IM PRN (07:58)
[2021-03-02] MEDS ORDERED: BISACODYL 10 MG SUPP.RECT RC PRN (07:58)
[2021-03-02] MEDS ORDERED: BENZOCAINE 20% 57 GM BOTTLE TP PRN (07:58)
[2021-03-02] MEDS ORDERED: BENZOCAINE 28 GM HEMORRHOIDAL OINTMENT TP PRN (07:58)
[2021-03-02 08:00] LABS: CALCIUM 8.9 mg/dL (8.5-10.1)
[2021-03-02] MEDS ORDERED: D5W-LR W/ 20 UNITS OXYTOCIN 1,000 ML IV SCH (08:00)
[2021-03-02 08:03] LABS: CREATININE 0.9 mg/dL (0.55-1.3)
[2021-03-02] MEDS ORDERED: IBUPROFEN 600 MG TABLET (FP) PO ONE (08:04)
[2021-03-02 08:05] LABS: BILIRUBIN,TOTAL 0.4 mg/dL (0.2-1); TOT PROT 7.5 g/dl (6.4-8.2)
[2021-03-02] MEDS: IBUPROFEN 600 MG TABLET (FP) PO PRN ×3 (08:05→23:13)
[2021-03-02] MEDS: OXYTOCIN 20 UNITS in 0.9% NS 20 UNIT/1,000 ML INFUS.BAG IV SCH (09:00)
[2021-03-02] MEDS: PRENATAL VITAMINS W/ FOLIC ACID TABLET (FP) PO SCH (09:31)
[2021-03-02 09:51] LABS: HEPATITIS B SURFACE AG MATERN NON-REACTIVE (NONREACTIVE); SYPHILIS W/ RPR CONF NON-REACTIVE (NONREACTIVE)
[2021-03-02 10:10] LABS: URINE AMPHETAMINES NEGATIVE (NEGATIVE)
[2021-03-02 10:11] LABS: METHADONE, UR NEGATIVE (NEGATIVE); URINE BENZODIAZEPINES NEGATIVE (NEGATIVE)
[2021-03-02 10:12] LABS: COCAINE, UR NEGATIVE (NEGATIVE); PHENCYCLIDINE,URINE NEGATIVE (NEGATIVE)
[2021-03-02 10:19] LABS: HIV INTERPRETATION NEGATIVE (NEGATIVE)
[2021-03-02 10:39] LABS: OPIATES, URI NEGATIVE (NEGATIVE); URINE BARBITURATES NEGATIVE (NEGATIVE)
[2021-03-02 10:42] LABS: HIV INTERPRETATION NEGATIVE (NEGATIVE)
[2021-03-02] MEDS: FERROUS SO4 325 MG TABLET (FP) PO SCH (17:04)
[2021-03-02] MEDS: ACETAMINOPHEN 325 MG TABLET (FP) PO PRN ×2 (17:05→23:14)
[2021-03-03] MEDS: IBUPROFEN 600 MG TABLET (FP) PO PRN ×3 (06:24→20:19)
[2021-03-03] MEDS: ACETAMINOPHEN 325 MG TABLET (FP) PO PRN (06:24)
[2021-03-03] MEDS: DEXTROSE 5%-LACTATED RINGERS 1,000 ML IV SCH (07:21)
[2021-03-03] MEDS: FERROUS SO4 325 MG TABLET (FP) PO SCH ×2 (08:49→17:28)
[2021-03-03 08:55] LABS: BASO % 0.9 % (0-2.0); EOS % 2.8 % (0-4.5); HEMOGLOBIN 10.1 GM/dL (10.7-15.3); LYMPH % 43.4 % (8-40); MCH 28.4 pg (25.7-33.7); MCHC 34.6 g/dl (32.0-36.0); MEAN PLT VOLUME 6.5 fl (7.5-11.1); MONO % 5.9 % (3.8-10.2); PLATELET COUNT 283 10^3/uL (134-434); RBC 3.54 M/mm3 (3.60-5.2); RDW 15.8 % (11.6-15.6)
[2021-03-03] MEDS: PRENATAL VITAMINS W/ FOLIC ACID TABLET (FP) PO SCH (09:34)
[2021-03-03] MEDS ORDERED: SENNOSIDES/DOCUSATE COMBO (SENNA PLUS) TABLET (UD) PO PRN (22:00)
[2021-03-04] MEDS: OXYTOCIN 20 UNITS in 0.9% NS 20 UNIT/1,000 ML INFUS.BAG IV SCH (08:10)
[2021-03-04] MEDS: FERROUS SO4 325 MG TABLET (FP) PO SCH (08:58)
[2021-03-04] MEDS: PRENATAL VITAMINS W/ FOLIC ACID TABLET (FP) PO SCH (09:07)
[2021-03-04 11:48] VITALS: BP 115/80; PULSE 84; TEMP 98.3
== END 2021-03-04 09:10 | disposition home or self-care (01) | DRG 560 ==
LOC: JDEL 05:50 → JLDR 06:09 → J3W 09:15
PROVIDERS: ADMIT Obstetrics & Gynecology; ATTEND Obstetrics & Gynecology
PROC: 10E0XZZ Delivery of Products of Conception, External Approach (ICD-10-PCS; principal; 2021-03-02)
PROC: 10907ZC Drainage of Amniotic Fluid, Therapeutic from Products of Conception, Via Natural or Artificial Opening (ICD-10-PCS; 2021-03-02)
DX: O99.214 Obesity complicating childbirth (principal); E66.01 Morbid (severe) obesity due to excess calories; O99.334 Smoking (tobacco) complicating childbirth; F17.210 Nicotine dependence, cigarettes, uncomplicated; Z3A.38 38 weeks gestation of pregnancy; Z37.0 Single live birth; Z86.59 Personal history of other mental and behavioral disorders; Z86.19 Personal history of other infectious and parasitic diseases
CPT/HCPCS: 36415; 36600; 59025; 59409; 80053; 80307; 82803; 85025; 85610; 85730; 86762; 86780; 86850; 86900; 86901; 87340; 87389; C9803; G0463-25; U0003; U0005

== ENCOUNTER 2023-10-07 14:06 | Inpatient (IN) | payer OTHER ==
[2023-10-07 14:12] VITALS: BMI 27.7
[2023-10-07] MEDS ORDERED: MAG HYDROX/AL HYDROX/SIMETH 30 ML UNIT-DOSE CUP ONE (14:49)
[2023-10-07] MEDS ORDERED: FAMOTIDINE 20 MG/50 ML IVPB 20 MG/50 ML MG IVPB ONE (14:49)
[2023-10-07] MEDS: MAG HYDROX/AL HYDROX/SIMETH 30 ML UNIT-DOSE CUP PO ONE (15:05)
[2023-10-07] MEDS: FAMOTIDINE 20 MG/50 ML IVPB 20 MG/50 ML MG IVPB ONE (15:05)
[2023-10-07 15:09] LABS: BASO % 1.6 % (0-2.0); HEMATOCRIT 30.3 % (32.4-45.2); HEMOGLOBIN 10.3 GM/dL (10.7-15.3); LYMPH % 13.4 % (8-40); MCH 36.6 pg (25.7-33.7); MEAN CELL VOLUME 107.5 fl (80-96); MEAN PLT VOLUME 6.5 fl (7.5-11.1); MONO % 4.7 % (3.8-10.2); NEUT % 78.3 % (42.8-82.8); PLATELET COUNT 365 10^3/uL (134-434); RBC 2.82 M/mm3 (3.60-5.2); RDW 23.2 % (11.6-15.6); WHITE BLOOD COUNT 8.1 K/mm3 (4.0-10.0)
[2023-10-07 15:32] LABS: CHLORIDE 99 mmol/L (98-107); SODIUM 141 mmol/L (136-145)
[2023-10-07 15:35] LABS: ALBUMIN 2.4 g/dl (3.4-5.0); CALCIUM 8.4 mg/dL (8.5-10.1); CO2 33 mmol/L (21-32); GLUCOSE,RANDOM 107 mg/dL (74-106)
[2023-10-07 15:38] LABS: CREATININE 0.4 mg/dL (0.55-1.3); SGOT/AST 151 U/L (15-37); SGPT/ALT 30 U/L (13-61)
[2023-10-07 15:40] LABS: TOT PROT 6.7 g/dl (6.4-8.2)
[2023-10-07 15:41] LABS: ALK PHOS 336 U/L (45-117); ANION GAP 9 mmol/L (4-13); BLOOD UREA NITROGEN 2.9 mg/dL (7-18); POTASSIUM 2.9 mmol/L (3.5-5.1)
[2023-10-07 15:56] LABS: ANISOCYTOSIS 3+; MACROCYTOSIS 2+
[2023-10-07] MEDS ORDERED: POTASSIUM CHLORIDE ORAL LIQUID 20 MEQ/15 ML ONE (16:09)
[2023-10-07] MEDS ORDERED: KCL 10 MEQ IVPB 10 MEQ/100 ML INFUS.BAG IVPB ONE ×3 (16:09→19:48)
[2023-10-07] MEDS: POTASSIUM CHLORIDE ORAL LIQUID 20 MEQ/15 ML PO ONE (16:11)
[2023-10-07 16:34] LABS: MAGNESIUM 1.9 mg/dL (1.8-2.4)
[2023-10-07] MEDS: KCL 10 MEQ IVPB 10 MEQ/100 ML INFUS.BAG IVPB SCH (17:12)
[2023-10-07] MEDS ORDERED: morphine SULFATE 4 MG/ML VIAL ONE (18:48)
[2023-10-07] MEDS: morphine CARPU-JECT 4 MG/1 ML DISP.SYRIN IVPUSH ONE (18:55)
[2023-10-07] MEDS ORDERED: CEFTRIAXONE 1 GM/50 ML BAG ONE (19:48)
[2023-10-07] MEDS ORDERED: HYDROmorphone HCl 2 MG/ML VIAL ONE ×2 (19:51→23:05)
[2023-10-07] MEDS: CEFTRIAXONE 1,000 MG in DEXTROSE 5%-WATER - 50 ML IVPB ONE (19:55)
[2023-10-07] MEDS: HYDROmorphone HCl 2 MG/ML VIAL IVPUSH ONE ×2 (20:18→23:10)
[2023-10-07 20:27] LABS: CHLORIDE 101 mmol/L (98-107); POTASSIUM 3.1 mmol/L (3.5-5.1); SODIUM 134 mmol/L (136-145)
[2023-10-07 20:28] LABS: CALCIUM 8.2 mg/dL (8.5-10.1)
[2023-10-07 20:29] LABS: ANION GAP 3 mmol/L (4-13); CO2 29 mmol/L (21-32); GLUCOSE,RANDOM 87 mg/dL (74-106)
[2023-10-07 20:32] LABS: BLOOD UREA NITROGEN 2.7 mg/dL (7-18); CREATININE 0.4 mg/dL (0.55-1.3)
[2023-10-08] MEDS ORDERED: diphenhydrAMINE HCL 25 MG CAPSULE (FP) PO ONE (01:34)
[2023-10-08] MEDS: SODIUM CHLORIDE 1,000 ML IV SCH (01:51)
[2023-10-08] MEDS: POTASSIUM CHLORIDE ORAL LIQUID 20 MEQ/15 ML PO ONE (01:52)
[2023-10-08] MEDS: KCL 10 MEQ IVPB 10 MEQ/100 ML INFUS.BAG IVPB SCH (01:52)
[2023-10-08] MEDS: ACETAMINOPHEN 1000 MG/100 ML BAG IVPB ONE (05:48)
[2023-10-08 07:41] LABS: BASO % 1.1 % (0-2.0); EOS % 3.3 % (0-4.5); HEMOGLOBIN 9.4 GM/dL (10.7-15.3); LYMPH % 18.5 % (8-40); MCH 36.4 pg (25.7-33.7); MCHC 33.6 g/dl (32.0-36.0); MEAN CELL VOLUME 108.4 fl (80-96); MEAN PLT VOLUME 6.3 fl (7.5-11.1); NEUT % 71.1 % (42.8-82.8); PLATELET COUNT 329 10^3/uL (134-434); RBC 2.59 M/mm3 (3.60-5.2); RDW 23.1 % (11.6-15.6); WHITE BLOOD COUNT 6.6 K/mm3 (4.0-10.0)
[2023-10-08 08:24] LABS: CHLORIDE 103 mmol/L (98-107); POTASSIUM 3.3 mmol/L (3.5-5.1); SODIUM 142 mmol/L (136-145)
[2023-10-08 08:33] LABS: ALBUMIN 2.3 g/dl (3.4-5.0); CALCIUM 8.3 mg/dL (8.5-10.1)
[2023-10-08 08:34] LABS: ANION GAP 8 mmol/L (4-13); CO2 31 mmol/L (21-32); GLUCOSE,RANDOM 84 mg/dL (74-106)
[2023-10-08 08:36] LABS: CREATININE 0.4 mg/dL (0.55-1.3); PHOSPHOROUS 2.3 mg/dL (2.5-4.9); SGOT/AST 142 U/L (15-37); SGPT/ALT 27 U/L (13-61)
[2023-10-08 08:38] LABS: BILIRUBIN,TOTAL 1.6 mg/dL (0.2-1); TOT PROT 6.1 g/dl (6.4-8.2)
[2023-10-08 08:42] LABS: INR 1.29 (0.83-1.09); PROTHROMBIN TIME (PATIENT) 14.9 SEC (9.7-13.0)
[2023-10-08 08:51] LABS: ALK PHOS 295 U/L (45-117); BLOOD UREA NITROGEN 2.9 mg/dL (7-18)
[2023-10-08] MEDS: THIAMINE 100 MG TABLET PO SCH (09:38)
[2023-10-08] MEDS: FOLIC ACID 1 MG TABLET (FP) PO SCH (09:38)
[2023-10-08 10:41] LABS: RETICULOCYTES 1.31 % (0.5-1.5)
[2023-10-08] MEDS: GABAPENTIN 100 MG CAPSULE PO SCH (12:52)
[2023-10-08] MEDS: traMADol HCL 50 MG TABLET PO PRN (12:52)
[2023-10-08] MEDS: CEFTRIAXONE 1 GM in DEXTROSE 5%-WATER - 50 ML IVPB SCH (13:07)
[2023-10-08 13:13] LABS: URINE APPEARANCE CLEAR; URINE BILIRUBIN NEGATIVE (NEGATIVE); URINE COLOR DK YELLOW; URINE GLUCOSE (UA) NEGATIVE (NEGATIVE); URINE KETONE NEGATIVE (NEGATIVE); URINE LEUK ESTERASE NEGATIVE (NEGATIVE); URINE NITRITE NEGATIVE (NEGATIVE); URINE PROTEIN NEGATIVE (NEGATIVE)
[2023-10-08] MEDS: ENOXAPARIN NA (PORCINE) 40 MG/0.4 ML DISP.SYRIN SQ SCH (15:17)
[2023-10-08] MEDS: KETOROLAC TROMETHAMINE 15 MG/ML VIAL IVPUSH PRN (16:52)
[2023-10-08] MEDS ORDERED: oxyCODONE HCL 5 MG TABLET PO PRN (17:43)
[2023-10-08] MEDS: diphenhydrAMINE HCL 25 MG CAPSULE (FP) PO PRN (18:35)
[2023-10-08] MEDS: oxyCODONE HCL 5 MG TABLET PO PRN (18:35)
[2023-10-08] MEDS: diazePAM 2 MG TABLET PO ONE ×2 (20:03→20:30)
[2023-10-08] MEDS: POTASSIUM CHLORIDE TABS 20 MEQ TABLET.ER (FP) PO SCH (21:54)
[2023-10-09] MEDS: NICOTINE 7 MG/24 HOURS TOPICAL PATCH TD SCH (09:34)
[2023-10-09 10:06] LABS: BASO % 1.1 % (0-2.0); EOS % 2.5 % (0-4.5); HEMOGLOBIN 9.9 GM/dL (10.7-15.3); LYMPH % 21.9 % (8-40); MCH 37.4 pg (25.7-33.7); MCHC 34.1 g/dl (32.0-36.0); MEAN CELL VOLUME 109.7 fl (80-96); MEAN PLT VOLUME 6.4 fl (7.5-11.1); MONO % 7.3 % (3.8-10.2); NEUT % 67.2 % (42.8-82.8); PLATELET COUNT 348 10^3/uL (134-434); RBC 2.64 M/mm3 (3.60-5.2); WHITE BLOOD COUNT 6.3 K/mm3 (4.0-10.0)
[2023-10-09 10:07] LABS: INR 1.14 (0.83-1.09); PROTHROMBIN TIME (PATIENT) 13.2 SEC (9.7-13.0)
[2023-10-09 10:24] LABS: CHLORIDE 103 mmol/L (98-107); POTASSIUM 3.4 mmol/L (3.5-5.1); SODIUM 141 mmol/L (136-145)
[2023-10-09 10:35] LABS: ALBUMIN 2.4 g/dl (3.4-5.0); ANION GAP 4 mmol/L (4-13); CALCIUM 8.2 mg/dL (8.5-10.1); CO2 34 mmol/L (21-32); MAGNESIUM 1.9 mg/dL (1.8-2.4)
[2023-10-09 10:36] LABS: GLUCOSE,RANDOM 74 mg/dL (74-106)
[2023-10-09 10:38] LABS: CREATININE 0.3 mg/dL (0.55-1.3); SGOT/AST 160 U/L (15-37); SGPT/ALT 28 U/L (13-61)
[2023-10-09 10:40] LABS: BILIRUBIN,TOTAL 1.5 mg/dL (0.2-1); TOT PROT 6.2 g/dl (6.4-8.2)
[2023-10-09 10:44] LABS: ALK PHOS 357 U/L (45-117); BLOOD UREA NITROGEN 2.9 mg/dL (7-18)
[2023-10-09] MEDS: KCL 10 MEQ IVPB 10 MEQ/100 ML INFUS.BAG IVPB SCH (12:22)
[2023-10-09] MEDS ORDERED: BUPIVACAINE HCL/PF 0.25% (2.5MG/ML) 10 ML VIAL ONE (13:51)
[2023-10-09] MEDS ORDERED: PROPOFOL 20 ML ONE ×3 (14:16→17:51)
[2023-10-09] MEDS ORDERED: ROCURONIUM BROMIDE 50 MG/5 ML SYRINGE ONE ×2 (14:16→16:35)
[2023-10-09] MEDS ORDERED: SUCCINYLCHOLINE CHLORIDE 200 MG/10 ML SYRINGE ONE ×2 (14:20→16:33)
[2023-10-09] MEDS ORDERED: DEXAMETHASONE SOD PHOSPHATE 4 MG/1 ML VIAL ONE (14:21)
[2023-10-09] MEDS ORDERED: ONDANSETRON 4 MG/2 ML VIAL ONE ×2 (14:21→18:08)
[2023-10-09] MEDS ORDERED: KETOROLAC TROMETHAMINE 30 MG/1 ML VIAL ONE (14:21)
[2023-10-09] MEDS ORDERED: FENTANYL CITRATE/PF 50 MCG/ML VIAL ONE ×6 (14:23→19:01)
[2023-10-09] MEDS ORDERED: MIDAZOLAM HCL 2 MG/2 ML SINGLE DOSE VIAL ONE (14:23)
[2023-10-09] MEDS ORDERED: CEFOXITIN SODIUM 1 GM IVPB ONE (14:27)
[2023-10-09] MEDS: cefOXitin SODIUM 1 GM VIAL (RESTRICTED TO ID) IVPB ONE (15:00)
[2023-10-09] MEDS ORDERED: INDOCYANINE GREEN 25 MG/10 ML VIAL IVPUSH ONE (15:22)
[2023-10-09] MEDS: BUPIVACAINE HCL/PF 0.5% (5MG/ML) 10 ML VIAL IJ ONE (17:43)
[2023-10-09] MEDS ORDERED: SUGAMMADEX SODIUM 200 MG/2 ML VIAL ONE (17:48)
[2023-10-09] MEDS: ONDANSETRON 4 MG/2 ML VIAL IVPUSH PRN (18:10)
[2023-10-09] MEDS ORDERED: ONDANSETRON 4 MG/2 ML VIAL IVPUSH PRN (18:12)
[2023-10-09] MEDS ORDERED: LACTATED RINGERS SOLUTION 1,000 ML IV SCH (18:15)
[2023-10-09] MEDS ORDERED: PROMETHAZINE HCL 25 MG/1 ML VIAL ONE (18:31)
[2023-10-09] MEDS: PROMETHAZINE HCL 25 MG/1 ML VIAL IVPB PRN (18:35)
[2023-10-09 18:53] LABS: BASO % 0.8 % (0-2.0); EOS % 0.2 % (0-4.5); HEMATOCRIT 31.5 % (32.4-45.2); HEMOGLOBIN 10.3 GM/dL (10.7-15.3); LYMPH % 8.8 % (8-40); MCH 35.7 pg (25.7-33.7); MCHC 32.6 g/dl (32.0-36.0); MEAN CELL VOLUME 109.4 fl (80-96); MEAN PLT VOLUME 6.2 fl (7.5-11.1); MONO % 1.9 % (3.8-10.2); NEUT % 88.3 % (42.8-82.8); PLATELET COUNT 425 10^3/uL (134-434); RBC 2.88 M/mm3 (3.60-5.2); RDW 23.2 % (11.6-15.6); WHITE BLOOD COUNT 10.4 K/mm3 (4.0-10.0)
[2023-10-09] MEDS: diphenhydrAMINE HCL 25 MG CAPSULE (FP) PO PRN (20:28)
[2023-10-09] MEDS: oxyCODONE HCL 5 MG TABLET PO PRN (20:28)
[2023-10-09] MEDS: POTASSIUM CHLORIDE TABS 20 MEQ TABLET.ER (FP) PO SCH (21:58)
[2023-10-10] MEDS: LACTATED RINGERS SOLUTION 1,000 ML IV SCH (02:21)
[2023-10-10] MEDS: oxyCODONE HCL 5 MG TABLET PO PRN (08:08)
[2023-10-10 10:02] LABS: BASO % 0.7 % (0-2.0); EOS % 0.1 % (0-4.5); HEMATOCRIT 28.8 % (32.4-45.2); HEMOGLOBIN 9.9 GM/dL (10.7-15.3); LYMPH % 9.5 % (8-40); MCH 37.5 pg (25.7-33.7); MCHC 34.4 g/dl (32.0-36.0); MEAN CELL VOLUME 109.1 fl (80-96); MEAN PLT VOLUME 6.2 fl (7.5-11.1); MONO % 7.7 % (3.8-10.2); PLATELET COUNT 427 10^3/uL (134-434); RBC 2.64 M/mm3 (3.60-5.2); RDW 23.6 % (11.6-15.6); WHITE BLOOD COUNT 11.2 K/mm3 (4.0-10.0)
[2023-10-10 10:18] LABS: INR 1.17 (0.83-1.09); PROTHROMBIN TIME (PATIENT) 13.6 SEC (9.7-13.0)
[2023-10-10 10:25] LABS: POTASSIUM 4.3 mmol/L (3.5-5.1)
[2023-10-10 10:27] LABS: ALBUMIN 2.5 g/dl (3.4-5.0); CALCIUM 8.7 mg/dL (8.5-10.1); MAGNESIUM 1.8 mg/dL (1.8-2.4)
[2023-10-10 10:28] LABS: BLOOD UREA NITROGEN 4.4 mg/dL (7-18)
[2023-10-10 10:31] LABS: CREATININE 0.5 mg/dL (0.55-1.3)
[2023-10-10 10:32] LABS: BILIRUBIN,TOTAL 1.4 mg/dL (0.2-1); TOT PROT 6.6 g/dl (6.4-8.2)
[2023-10-10] MEDS: GABAPENTIN 100 MG CAPSULE PO SCH (10:36)
[2023-10-10] MEDS: CEFTRIAXONE 1 GM in DEXTROSE 5%-WATER - 50 ML IVPB SCH (10:36)
[2023-10-10] MEDS: THIAMINE 100 MG TABLET PO SCH (10:36)
[2023-10-10] MEDS: FOLIC ACID 1 MG TABLET (FP) PO SCH (10:36)
[2023-10-10] MEDS: NICOTINE 7 MG/24 HOURS TOPICAL PATCH TD SCH (10:37)
[2023-10-10 12:05] VITALS: RESP 18
[2023-10-10 13:35] VITALS: BP 113/74; PULSE 103; TEMP 98.3
[2023-10-10] MEDS: ENOXAPARIN NA (PORCINE) 40 MG/0.4 ML DISP.SYRIN SQ SCH (14:25)
== END 2023-10-10 16:20 | disposition home or self-care (01) | DRG 263 ==
LOC: JER 14:06 → JERBED 19:36 → J5S 10-08 00:31
PROVIDERS: ADMIT Internal Medicine
PROC: 0FT44ZZ Resection of Gallbladder, Percutaneous Endoscopic Approach (ICD-10-PCS; principal; 2023-10-09 15:17)
DX: K81.0 Acute cholecystitis (principal); I10 Essential (primary) hypertension; K76.0 Fatty (change of) liver, not elsewhere classified; E87.6 Hypokalemia; F10.10 Alcohol abuse, uncomplicated; R10.9 Unspecified abdominal pain; Z98.84 Bariatric surgery status; K91.61 Intraoperative hemorrhage and hematoma of a digestive system organ or structure complicating a digestive system procedure; Y83.9 Surgical procedure, unspecified as the cause of abnormal reaction of the patient, or of later complication, without mention of misadventure at the time of the procedure
CPT/HCPCS: 36415; 74177-TC; 74183-TC; 76705-TC; 80048; 80053; 81003; 82607; 82728; 82746; 83540; 83550; 83690; 83735; 84100; 84436; 84443; 84466; 84703; 85025; 85045; 85610; 86850; 86900; 86901; 87086; 88304-TC; 93005; 93010; 93306-TC; 94760; 99285-25; J0131; Q9967